=== PATIENT | female | born 2000 | race Caucasian/White ===

== ENCOUNTER 2024-05-23 19:21 | Emergency (ER) | payer OTHER ==
[~2024-05-23] VITALS: Ht 167.6 cm; Wt 70.6 kg
[2024-05-23 19:26] VITALS: TEMP 98.1
[2024-05-23] MEDS ORDERED: MIRE1IUD IY (19:33)
[2024-05-23] MEDS: KETOROLAC 30 MG/ML 1ML VIAL IV ONE (20:00)
[2024-05-23 20:30] LABS: BASO % 0.3 % (0.0-1.0); EOS # 0.4 10^3/uL (0.0-0.5); EOS % 4.3 % (0.0-3.0); HEMATOCRIT 42.8 % (36.0-47.0); HEMOGLOBIN 14.4 g/dl (12.0-15.5); LYMPH # 2.6 10^3/uL (1.5-5.0); LYMPH % 26.7 % (24.0-44.0); MEAN CORPUSCULAR HEMOGLOBIN 29.9 pg (27.0-33.0); MEAN CORPUSCULAR HGB CONC 33.6 g/dl (32.0-36.5); MONO # 0.6 10^3/uL (0.0-0.8); NEUTROPHILS # 6.2 10^3/uL (1.5-8.5); NEUTROPHILS % 62.4 % (36.0-66.0); PLATELET COUNT, AUTOMATED 220 10^3/uL (150-450); RED BLOOD COUNT 4.81 10^6/uL (4.00-5.40); WHITE BLOOD COUNT 9.9 10^3/uL (4.0-10.0)
[2024-05-23 20:45] LABS: D-DIMER QUANT < 0.27 ug/mL (<0.5); INR 0.94; PROTHROMBIN TIME 12.9 SECONDS (12.5-14.5)
[2024-05-23 20:58] LABS: CK-MB VALUE MASS < 1.0 NG/ML (<3.6)
[2024-05-23 20:59] LABS: BLOOD UREA NITROGEN 9 MG/DL (9-23); CARBON DIOXIDE LEVEL 28 MMOL/L (20-31); CHLORIDE LEVEL 107 MMOL/L (98-107); CREATININE FOR GFR 0.73 MG/DL (0.55-1.30); GLOMERULAR FILTRATION RATE > 60.0 (>60); GLUCOSE, FASTING 104 MG/DL (60-100); POTASSIUM SERUM 3.9 MMOL/L (3.5-5.1); SODIUM LEVEL 141 MMOL/L (136-145)
[2024-05-23 21:01] LABS: CPK CREATINE PHOSPHOKINASE 73 U/L (34-145); MB/CK RELATIVE INDEX 1.36 (< OR =4)
[2024-05-23 22:53] LABS: CK-MB VALUE MASS < 1.0 NG/ML (<3.6); CPK CREATINE PHOSPHOKINASE 63 U/L (34-145); MB/CK RELATIVE INDEX 1.58 (< OR =4)
[2024-05-23 23:00] VITALS: BP 118/63; O2SAT 99
== END 2024-05-23 23:17 | disposition home or self-care (01) ==
LOC: M ED 19:21
DX: R07.89 Other chest pain (principal); I45.10 Unspecified right bundle-branch block; Z79.3 Long term (current) use of hormonal contraceptives
CPT/HCPCS: 71045; 80048; 82550; 82553; 84484; 85025; 85379; 85610; 85730; 93005; 93041; 94760; 96374; 99285; J1885

== ENCOUNTER → 2025-04-19 | Outpatient (CLI) | payer OTHER ==
[~2025-04-19] MED LIST: MIRE1IUD IY
== END ==
LOC: M RAD 16:57
PROVIDERS: ATTEND Internal Medicine
DX: N20.0 Calculus of kidney (principal)